=== PATIENT | male | born 1990 | race Hispanic/Latino ===

== ENCOUNTER 2018-01-25 03:37 | Emergency (ER) | payer SELFPAY | END 2018-01-25 04:56 | disposition home or self-care (01) | LOC: EDH 03:37 | DX: M79.1 Myalgia (principal); R10.9 Unspecified abdominal pain | CPT/HCPCS: 99281 ==

== ENCOUNTER 2021-08-28 09:28 | Emergency (ER) | payer SELFPAY ==
[~2021-08-28] VITALS: Ht 182.9 cm; Wt 127.5 kg
[2021-08-28 10:05] LABS: BASOPHILS % (AUTO) 0.4 % (0.0-5.0); EOSINOPHILS % (AUTO) 3.4 % (0.0-8.0); HEMATOCRIT 47.4 % (42-54); LYMPHOCYTES % (AUTO) 29.9 % (21.0-51.0); MEAN CORPUSCULAR HGB CONC 33.5 g/dL (32.0-36.0); MEAN CORPUSCULAR VOLUME 83.5 fL (79-99); MONOCYTES % (AUTO) 6.1 % (3.0-13.0); NEUTROPHILS % (AUTO) 59.6 % (40.0-77.0); PLATELET COUNT (AUTO) 258 K/uL (130-400); RED BLOOD CELL COUNT(AUTO) 5.68 MIL/uL (4.50-6.20); RED CELL DISTRIBUTION WIDTH 13.2 % (11.0-15.5); WHITE BLOOD COUNT (AUTO) 6.9 K/uL (4.8-10.8)
[2021-08-28 10:17] LABS: CREATININE 1.2 mg/dL (0.5-1.5); POTASSIUM 4.3 mmol/L (3.5-5.1)
[2021-08-28 10:22] LABS: ALBUMIN 4.1 g/dL (3.5-5.0); BILIRUBIN,TOTAL 0.3 mg/dL (0.2-1.0)
[2021-08-28] MEDS ORDERED: IBUP-2070 PO (12:14)
[2021-08-28 12:45] VITALS: BP 128/85
== END 2021-08-28 12:51 | disposition home or self-care (01) ==
LOC: EDH 09:28
DX: G89.29 Other chronic pain (principal); M79.671 Pain in right foot; R82.998 Other abnormal findings in urine; Z79.1 Long term (current) use of non-steroidal anti-inflammatories (NSAID)
CPT/HCPCS: 36415; 73630; 80053; 84550; 85025; 85651; 86140

== ENCOUNTER 2023-05-30 22:51 | Emergency (ER) | payer OTHER ==
[~2023-05-30] VITALS: Ht 182.9 cm; Wt 122.5 kg
[~2023-05-30 22:51] MED LIST: IBUP-2070 PO
[2023-05-30 22:53] VITALS: BP 121/65; PULSE 83; RESP 18
== END 2023-05-31 00:12 | disposition home or self-care (01) ==
LOC: EDH 22:51
DX: D17.0 Benign lipomatous neoplasm of skin and subcutaneous tissue of head, face and neck (principal)
CPT/HCPCS: 99281

== ENCOUNTER 2024-03-07 10:13 | Emergency (ER) | payer OTHER ==
[~2024-03-07] VITALS: Ht 182.9 cm; Wt 129.3 kg
[~2024-03-07 10:13] MED LIST changes: +ACET-2079 PO; +INDO-16 PO; +METH4TAB3 PO
[2024-03-07 10:47] VITALS: BP 134/55; PULSE 76; RESP 16; O2SAT 98
[2024-03-07] MEDS: DEXAMETHASONE SOD PHOSPHATE 4 MG/ML 1ML VIAL IM ONE (11:14)
[2024-03-07] MEDS: KETOROLAC 60 MG VIAL (30MG/ML) IM ONE (11:15)
[2024-03-07] MEDS: ACETAMINOPHEN WITH CODEINE 1 TAB TAB PO ONE (11:15)
[2024-03-07] MEDS ORDERED: ALLO100T PO (13:13)
[2024-03-07] MEDS ORDERED: NAPR-1180 PO (13:13)
== END 2024-03-07 13:40 | disposition home or self-care (01) ==
LOC: EDH 10:13
DX: M10.9 Gout, unspecified (principal); G89.29 Other chronic pain; M79.671 Pain in right foot
CPT/HCPCS: 99284; 73630; 96372 ×2; J1100; J1885

== ENCOUNTER 2024-06-10 18:32 | Emergency (ER) | payer OTHER ==
[~2024-06-10] VITALS: Ht 182.9 cm; Wt 113.4 kg
[~2024-06-10 18:32] MED LIST changes: +ALLO100T PO; +NAPR-1180 PO
[2024-06-10 19:11] LABS: BASOPHILS # (AUTO) 0.03 K/uL (0.00-0.20); BASOPHILS % (AUTO) 0.5 % (0.0-5.0); EOSINOPHILS # (AUTO) 0.19 K/uL (0.00-0.70); EOSINOPHILS % (AUTO) 3.1 % (0.0-8.0); HEMATOCRIT 42.5 % (42-54); IMMATURE GRANULOCYTE ABSOLUTE 0.02 K/uL (0-1); LYMPHOCYTES # (AUTO) 1.6 K/uL (1.0-4.8); LYMPHOCYTES % (AUTO) 25.9 % (21.0-51.0); MEAN CORPUSCULAR HEMOGLOBIN 28.7 pg (27.0-33.0); MEAN CORPUSCULAR HGB CONC 34.1 g/dL (32.0-36.0); MEAN CORPUSCULAR VOLUME 84.2 fL (79-99); MONOCYTES # (AUTO) 0.4 K/uL (0.1-1.0); MONOCYTES % (AUTO) 6.6 % (3.0-13.0); NEUTROPHILS % (AUTO) 63.6 % (40.0-77.0); PLATELET COUNT (AUTO) 211 K/uL (130-400); RED BLOOD CELL COUNT(AUTO) 5.05 MIL/uL (4.50-6.20); RED CELL DISTRIBUTION WIDTH 13.4 % (11.0-15.5); WHITE BLOOD COUNT (AUTO) 6.2 K/uL (4.8-10.8)
[2024-06-10] MEDS: 0.9%NACL 1000ML 1,000 ML IV ONE (19:18)
[2024-06-10 19:21] LABS: CREATININE 1.2 mg/dL (0.5-1.3); POTASSIUM 3.7 mmol/L (3.5-5.1)
[2024-06-10 19:28] LABS: APPEARANCE,URINE CLEAR (CLEAR); BILIRUBIN,URINE NEGATIVE (NEGATIVE); COLOR,URINE LIGHT-YELLOW (YELLOW); GLUCOSE, URINE (UA) NEGATIVE (NEGATIVE); KETONES,URINE NEGATIVE (NEGATIVE); LEUKOCYTE ESTERASE ,URINE NEGATIVE Leu/uL (NEGATIVE); NITRATE,URINE NEGATIVE (NEGATIVE); OCCULT BLOOD,URINE NEGATIVE (NEGATIVE); PH,URINE 5.5 (5.0-8.0); PROTEIN,URINE NEGATIVE (NEGATIVE); UROBILINOGEN,URINE 0.2 mg/dL (0.2-1.0)
[2024-06-10 19:29] LABS: ADD UA MICROSCOPIC YES
[2024-06-10 19:30] LABS: MUCUS,URINE RARE LPF (None Seen); RBC,URINE 0-1 /HPF (0-1); SQUAMOUS EPITHELIAL CELL,UR RARE /HPF (0-2); WBC,URINE 0-1 /HPF (0-1)
[2024-06-10 19:47] LABS: SARS-CoV-2, RNA, NAAT NEGATIVE SARS CoV-2 (NEGATIVE)
[2024-06-10 19:53] LABS: INFLUENZA TYPE A Negative For Type A (NEGATIVE); INFLUENZA TYPE B Negative For Type B (NEGATIVE)
[2024-06-10] MEDS ORDERED: 0.9%NACL 100ML 100 ML IV SCH (20:30)
[2024-06-10] MEDS: 0.9%NACL 1000ML 1,000 ML IV SCH (20:37)
[2024-06-10 21:21] VITALS: BP 128/91; PULSE 78; RESP 18; O2SAT 98
== END 2024-06-10 21:21 | disposition home or self-care (01) ==
LOC: EDH 18:32
DX: G40.909 Epilepsy, unspecified, not intractable, without status epilepticus (principal); E86.0 Dehydration; Z20.822 Contact with and (suspected) exposure to COVID-19; Z72.820 Sleep deprivation; Z79.899 Other long term (current) drug therapy; Z98.890 Other specified postprocedural states
CPT/HCPCS: 99285; 96360; 87635; 82550; 84484; 80048; 85025; 87804 ×2; 81001; 36415; 93005; 80177; J7030 ×2